=== PATIENT | male | born 2000 | race Two or more races ===

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

== ENCOUNTER 2025-09-02 21:00 | Emergency (ER) | payer OTHER ==
[~2025-09-02] VITALS: Ht 170.2 cm; Wt 79.4 kg
[2025-09-02 21:36] LABS: PLATELET COUNT (AUTO) 237 K/uL (150-450); RED BLOOD CELL COUNT(AUTO) 4.30 MIL/uL (4.5-6.0); RED CELL DISTRIBUTION WIDTH 12.3 % (11.5-15.0); WHITE BLOOD COUNT (AUTO) 6.7 K/uL (4.3-11.0)
[2025-09-02 21:43] LABS: CALCIUM, SERUM 8.4 mg/dL (8.5-10.1); CREATININE 1.0 mg/dL (0.6-1.3); SODIUM SERUM 142.0 mmol/L (136-145); UREA NITROGEN, BLOOD 18.0 mg/dL (7-18)
[2025-09-02 21:48] LABS: ASPARTATE AMINOTRANSFERASE 60.0 U/L (15-37); TOTAL PROTEIN, SERUM 7.9 g/dL (6.4-8.2)
[2025-09-02 21:49] LABS: APPEARANCE,URINE CLEAR (CLEAR); BLOOD, URINE TRACE-INTA Ery/uL (NEGATIVE); LEUKOCYTE ESTERASE ,URINE NEGATIVE (NEGATIVE); NITRITE, URINE NEGATIVE (NEGATIVE); UGLUCOSE NEGATIVE (NEGATIVE)
[2025-09-02 21:52] LABS: ADD URINE CULTURE NO; SQUAMOUS EPITHELIAL CELL,UR 0-2 /HPF (None Seen)
[2025-09-02] MEDS ORDERED: PANTOPRAZOLE 40 MG VIAL ONE (22:29)
[2025-09-02] MEDS ORDERED: DEXTROSE 50%-WATER 50 ML DISP.SYRIN ONE (22:29)
[2025-09-02] MEDS: DEXTROSE 50%-WATER 50 ML DISP.SYRIN IVP ONE (22:40)
[2025-09-02] MEDS: IV NS 0.9% 1,000 ML BAG IV ONE (22:45)
[2025-09-02] MEDS: PANTOPRAZOLE 40 MG VIAL IV ONE (22:45)
[2025-09-02] MEDS ORDERED: ONDANSETRON HCL/PF 4 MG/2 ML VIAL ONE (22:46)
[2025-09-02] MEDS: ONDANSETRON HCL/PF 4 MG/2 ML VIAL IV ONE (22:48)
[2025-09-02] MEDS ORDERED: METOCLOPRAMIDE HCL 10 MG/2 ML VIAL ONE (23:03)
[2025-09-02] MEDS: METOCLOPRAMIDE HCL 10 MG/2 ML VIAL IV ONE (23:08)
[2025-09-03] MEDS ORDERED: ONDA4TAB5 PO (00:15)
[2025-09-03] MEDS ORDERED: PANT40TA2 PO (00:15)
[2025-09-03] MEDS ORDERED: DICY10CA37 PO (00:15)
[2025-09-03 00:32] VITALS: BP 98/60; TEMP 98.6; O2SAT 96
== END 2025-09-03 00:33 | disposition home or self-care (01) ==
LOC: ER 21:02
DX: E16.2 Hypoglycemia, unspecified (principal); R10.9 Unspecified abdominal pain; R11.2 Nausea with vomiting, unspecified
CPT/HCPCS: 99285; 96374; 96361; 96375; 85025; 80048; 83690; 80076; 81001; 36415; 82962; 80320; J1200; J2765; J2405; J7030; J2470; G0480